=== PATIENT | male | born 1960 | race Caucasian/White ===

== ENCOUNTER 2017-10-01 10:58 | Outpatient (CLI) | payer MEDICARE ==
--- NOTE | ~2017-10-01 | HEMODYNAMI ---
PATIENT:LAURA QUINTEROS MEDICAL RECORD: [id number] : 56 LOCATION:[facility] ADMISSION DATE: 10/01/17 Generatedon:10/01/201714:24 Patient name: LAURA QUINTEROS Patient #: [id number] SSN: : 1960 Date of study: 10/01/2017 Page: Of Hemodynamic Procedure Report Patient Data Patient Demographics Procedure consent was obtained First Name: LAURA Gender: Male Last Name: NELI : 1960 Middle Initial: BO Age: 57 year(s) Patient #: [id number] Race: Unknown Additional ID: [id number] Contact details [address]: [address] [place] [address] State: [place] City: [place] Zip code: [address] Past Medical History Allergies: No known allergies Admission Admission Data Admission Date: 10/01/2017 Admission Time: 10:58 Admit Source: Other Lab Results Lab Result Date: 10/01/2017 Lab Result Time: 0:00 Biochemistry Name Units Result Min Max BUN mg/dl 32 --(----)-* 7 18 Creatinine mg/dl 1.2 --(---*)-- 0.6 1.3 CBC Name Units Result Min Max Hematocrit % 44.7 --(*---)-- 42 54 Hemoglobin g/dl 15.3 --(-*--)-- 13.5 17.5 Procedure Procedure Types Cath Procedure Diagnostic Procedure C [facility] w/Coronaries Procedure Description Procedure Date Procedure Date: 10/01/2017 Procedure Start Time: 14:08 Procedure End Time: 14:21 Procedure Staff Name Function Nabil Carr MD Performing Physician Krishna Lopez RT Monitor Idris Yu RN Nurse Laurel Russell RT Scrub Procedure Data Cath Procedure Fluoroscopy Diagnostic fluoroscopy Total fluoroscopy Time: 1.9 time: 1.9 min min Diagnostic fluoroscopy Total fluoroscopy dose: 628 dose: 628 mGy mGy Contrast Material Contrast Material Type Amount (ml) Isovue 300 58 Entry Location Entry Primary Successful Side Size Upsize Upsize Entry Closure Tapia ccessful Closure Location (Fr) 1 (Fr) 2 (Fr) Remarks Device Remarks Radial Right 6 Fr Mechanical artery Short Compression Estimated blood loss: 5 ml Diagnostic catheters Device Type Used For End Catheter Placement DIAGNOSTIC Sterling 110cm Procedure 5Fr catheter ([id number]) Procedure Complications No complications Procedure Medications Medication Administration Route Dosage Oxygen NC 2 l/min 0.9% NaCl I.V. 100 ml/hr Heparin Flush Bag added to field 2 bags (1000units/500ml NS) Radial Cocktail added to field 1 syringe (Verapomil 2mg/Nitro 400mcg/Heparin 1500units) Fentanyl I.V. 50 mcg Versed I.V. 1 mg Fentanyl I.V. 50 mcg Versed I.V. 1 mg Radial Cocktail I.A. 1 syringe (Verapomil 2mg/Nitro 400mcg/Heparin 1500units) Fentanyl I.V. 50 mcg Hemodynamics Rest HGB: 15.3 (g/dl) Heart Rate: 70 (bpm) Pressure Samples Time Site Value (mmHg) Purpose Heart Use Rate(bpm) 14:12 LV 95/1,13 Snapshot 76 14:12 LV 94/2,12 Snapshot 78 14:12 AO 70/47(55) Pullback 74 14:12 LV 91/-2,9 Pullback 74 Gradients Valve Time Site 1 Site 2 Mean SEP/DFP Peak To Heart Use (mmHg) (sec/min) Peak Rate (mmHg) (bpm) Aortic 14:12 LV AO 8 15 21 74 91/-2,9 70/47(55) Calculations Valve P-P Mean Valve Index Valve Source Name Gradient Area Flow (cm2) Aortic 21 8 21 8 Snapshots Pre Cath Intra NCS Post Cath Vital Signs Time Heart Resp SPO2 etCO2 NIBP Rhythm Pain Sedation Rate (ipm) (%) (mmHg) (mmHg) Status Level (bpm) 13:55:05 65 16 95 0 102/68(84) NSR 0 (11) 10(A) , No pain 13:59:37 70 17 95 0 106/73(93) NSR 0 (11) 10(A) , No pain 14:04:10 71 15 98 0 104/71(88) NSR 0 (11) 9(A) , No pain 14:08:42 74 16 97 0 105/71(86) NSR 0 (11) 9(A) , No pain 14:13:19 71 16 89 0 88/54(71) NSR 0 (11) 9(A) , No pain 14:17:49 80 16 98 0 93/63(76) NSR 0 (11) 9(A) , No pain 14:20:41 76 16 100 0 94/64(75) NSR 0 (11) 9(A) , No pain Medications Time Medication Route Dose Verified Delivered Reason Notes Effectiveness by by 14:01:46 Oxygen NC 2 l/min Nabil Idris Per Bruno Yu RN physician 14:01:54 0.9% NaCl I.V. 100 Nabil Idris Per ml/hr Bruno Yu RN physician 14:02:02 Heparin Flush added 2 bags Nabil Idris used for Bag to Bruno Yu RN procedure (1000units/500ml field NS) 14:02:17 Radial Cocktail added 1 Nabil Idris used for (Verapomil to syringe Bruno Yu RN procedure 2mg/Nitro field 400mcg/Heparin 1500units) 14:03:45 Fentanyl I.V. 50 mcg Nabil Idris for sedation Bruno Yu RN 14:03:51 Versed I.V. 1 mg Nabil Idris for sedation Bruno Yu RN 14:08:30 Fentanyl I.V. 50 mcg Nabil Idris for sedation Bruno Yu RN 14:08:35 Versed I.V. 1 mg Nabil Idris for sedation Bruno Yu RN 14:10:00 Radial Cocktail I.A. 1 Nabil Nabil for (Verapomil syringe Bruno Carr MD vasodilation 2mg/Nitro 400mcg/Heparin 1500units) 14:12:39 Fentanyl I.V. 50 mcg Nabil Idris for sedation Bruno Yu RN Procedure Log Time Note 13:30:31 Idris Yu RN sent for patient. Start room use. 13:37:30 Informed consent obtained and on chart 13:37:44 Admit Source: Other 13:38:08 Diagnostic Cath status Elective 13:38:17 Time tracking: Regular hours 13:38:26 Plan of Care:Hemodynamics will remain stable., Cardiac rhythm will remain stable., Comfort level will be maintained., Respiratory function will remain adequate., Patient/ family verbilizes understanding of procedure., Procedure tolerated without complication., Recovers from procedure without complications.. 13:47:43 Lab Result : Hemoglobin 15.3 g/dl ::43 Lab Result : Hematocrit 44.7 % ::43 Lab Result : BUN 32 mg/dl ::43 Lab Result : Creatinine 1.2 mg/dl 13:47:48 Patient received from Pre/Post Procedure Room to CCL 1 Alert and oriented. Tansferred to table in Supine position. 13:47:49 Warm blankets applied, and marisel hugger turned on for patient comfort. 13:47:50 Correct patient and procedure confirmed by team. 13:47:50 ECG and BP/O2 sat monitors applied to patient. 13:54:19 Vital chart was started 14:01:04 Baseline sample Acquired. 14:01:08 Rhythm: sinus rhythm 14:01:46 Oxygen 2 l/min NC was administered by Idris Yu RN; Per physician; 14:01:48 Full Disclosure recording started 14:01:54 0.9% NaCl 100 ml/hr I.V. was administered by Idris Yu RN; Per physician; 14:01:58 H&P Date Dictated: 09/12/2017 Within 30 days and on chart., H&P Addendum completed by physician on day of procedure. (MUST COMPLETE FOR ALL OUTPATIENTS). 14:01:59 Pre-procedure instructions explained to patient. 14:02:00 Pre-op teaching completed and patient verbalized understanding. 14:02:02 Heparin Flush Bag (1000units/500ml NS) 2 bags added to field was administered by Idris Yu RN; used for procedure; 14:02:02 Family in waiting room. 14:02:05 Patient NPO since Breakfast. 14:02:11 Patient allergic to No known allergies 14:02:14 Is the patient allergic to Iodine/contrast media? No. 14:02:14 Is patient on blood thinner?No 14:02:17 Radial Cocktail (Verapomil 2mg/Nitro 400mcg/Heparin 1500units) 1 syringe added to field was administered by Idris Yu RN; used for procedure; 14:02:19 Patient diabetic? Yes. 14:02:20 If diabetic: On Metformin? Yes 14:02:22 If on Metformin: Last Dose? 09/29/2017 14:02:25 Previous problem with sedation/anesthesia? No ? 14:02:27 Snore? Yes 14:02:28 Sleep apnea? Yes 14:02:28 Deviated septum? No 14:02:29 Opens mouth fully? Yes 14:02:30 Sticks out tongue? Yes 14:02:37 Airway obstruction? Yes copd 14:02:43 Dentures? No ? 14:02:45 Modified Kemar's test Ulnar < 7 seconds 14:02:47 Patient pain scale 0/10 ?. 14:02:57 IV patent on arrival in left wrist with 0.9% NaCl at [facility]. 14:02:59 Lab results completed and on chart. 14:03:02 Right Radial & Right Groin area was prepped with chlora-prep and draped in sterile fashion 14:03:03 Alarms reviewed by R. N. 14:03:03 Sharps counted by scrub and verified by R.N. 14:03:05 Use device set Radial Dx or PCI 14:03:06 ACIST Syringe (59627) opened to sterile field. 14:03:07 Medline Cath Pack ([id number]) opened to sterile field. 14:03:07 Bag Decanter (2002S) opened to sterile field. 14:03:10 ACIST Hand Control (12386) opened to sterile field. 14:03:10 ACIST Manifold (71854) opened to sterile field. 14:03:11 Tegaderm 4 x 4 (1626W) opened to sterile field. 14:03:13 DIAGNOSTIC WIRE .035 260cm J wire (929125) opened to sterile field. 14:03:13 SHEATH 6FR Slender ([id number]) opened to sterile field. 14:03:14 MBrace Wrist Support ([id number]) opened to sterile field. 14:03:15 NEEDLE Cook 21G 4cm Radial (F40415) opened to sterile field. 14:03:22 Physician arrived 14:03:22 --------ALL STOP TIME OUT------ 14:03:23 Final Timeout: patient, procedure, and site verified with staff and physician. All members of the team are in agreement. 14:03:24 Right Radial & Right Groin site verified by team. 14:03:26 Physical assessment completed. ASA score P 2 - A patient with mild systemic disease as per Nabil Carr MD. 14::28 Sedation plan: IV Moderate Sedation Medication:Versed, Fentanyl 14:03:45 Fentanyl 50 mcg I.V. was administered by Idris Yu RN; for sedation; 14:03:51 Versed 1 mg I.V. was administered by Idris Yu RN; for sedation; 14:06:14 Zero performed for pressure channel P1 14:08:16 Procedure started. 14:08:21 Local anesthetic to right radial artery with Lidocaine 2% by Nabil Carr MD.INITIAL ACCESS ONLY 14:08:28 A 6 Fr Short sheath was inserted into the Right Radial artery 14:08:30 Fentanyl 50 mcg I.V. was administered by Idris Yu RN; for sedation; 14:08:35 Versed 1 mg I.V. was administered by Idris Yu RN; for sedation; 14:10:00 Radial Cocktail (Verapomil 2mg/Nitro 400mcg/Heparin 1500units) 1 syringe I.A. was administered by Nabil Carr MD; for vasodilation; 14:11:01 A DIAGNOSTIC Sterling 110cm 5Fr catheter ([id number]) was advanced over the wire and used for Procedure. 14:12:20 EF : 60 % 14:12:22 LV gram done using CRISTINA 14:12:28 Injector settings: Ml/sec: 5, Volume: 15, 14:12:39 Fentanyl 50 mcg I.V. was administered by Idris Yu RN; for sedation; 14:12:59 LCA angiography performed. 14:14:56 RCA angiography performed. 14:15:41 Catheter removed. 14:15:43 TR BAND Standard ([id number]) opened to sterile field. 14:16:33 Sheath removed intact; hemostasis achieved with Mechanical Compression to the Right Radial artery. 14:16:35 Procedure ended.(Physican Out) 14:18:44 Fluoroscopy time 01.90 minutes. 14:18:50 Fluoroscopy dose: 628 mGy 14:18:50 Flurop Dose total: 628 14:18:55 Contrast amount:Isovue 300 58ml. 14:18:57 Sharps counted by scrub and verified by R.N. 14:19:01 Insertion/operative site no bleeding no hematoma. 14:19:11 Post right radial artery:stable, soft, clean and dry 14:19:21 TR band inflated with 11cc of air. 14:19:23 Post Procedure Pulses reassessed and unchanged 14:19:29 Post-procedure physical assessment completed. ASA score P 2 - A patient with mild systemic disease as per Nabil Carr MD. 14:19:32 Post procedure rhythm: unchanged. 14:20:02 Estimated blood loss: 5 ml 14:20:03 Post procedure instruction explained to patient.Patient verbalizes understanding. 14:20:04 Patient needs reinforcement of post procedure teaching. 14:21:06 Procedure and supply charges have been captured, reviewed, submitted and are correct. 14:21:08 Procedure Complication : No complications 14:21:11 Vital chart was stopped 14:21:11 See physician's report for complete and final results. 14:21:12 Report given to Pre/Post Procedure Room. 14:21:14 Patient transfered to Pre/Post Procedure Room with Stretcher. 14:21:16 Procedure ended. 14:21:16 Full Disclosure recording stopped 14:21:22 End room use (Document Last) Device Usage Item Name Manufacture Quantity Catalog Hospital Part Current Minima l Lot# / Number Charge Number Stock Stock Serial# Code ACIST Acist 1 25654 003957 092592 068672 20 Syringe Medical (35327) Systems Inc Medline Cath Cardinal 1 [id number] 440745 27038 225520 5 Pack Health ([id number]) Bag Decanter Microtek 1 2001S 976215 68854 568967 5 (2001S) Medical Inc. ACIST Hand Acist 1 12130 343319 080862 802185 5 Control Medical (79547) Systems Inc ACIST Acist 1 57108 098473 554622 526542 5 Manifold Medical (60798) Systems Inc Tegaderm 4 x 3M 1 1626W 900965 954778 083770 5 4 (1626W) DIAGNOSTIC [facility] 1 624398 909266 262507 845689 30 WIRE .035 260cm J wire (977399) SHEATH 6FR Terumo 1 [id number] 006741 467619 828088 40 Slender ([id number]) MBrace Wrist Advanced 1 140-0250-00 292153 58930 671808 5 Support Vascular ([id number]) Dynamics NEEDLE [facility] 1 E88620 265765 547296 730502 5 21G 4cm Radial (X12165) DIAGNOSTIC Terumo 1 40-5372 160054 792943 406244 5 Sterling 110cm 5Fr catheter (389269) TR BAND Terumo 1 [id number] 626104 575826 598049 40 Standard ([id number]) Signature Audit [place] Stage Time Signature Unsigned Intra-Procedure 10/01/2017 Krishna Lopez 2:24:30 PM RT(R) Signatures Monitor : Krishna Lopez RT Signature : Date : Time : [address] [address]
[2017-10-01] MEDS ORDERED: OXYCODONE HCL E20 MG PO (12:14)
[2017-10-01] MEDS ORDERED: MS CONTIN30 MG PO (12:15)
[2017-10-01] MEDS ORDERED: LYRICA150 MG PO (12:16)
[2017-10-01] MEDS ORDERED: OXYCOD/APAP TAB 10- (12:17)
[2017-10-01] MEDS ORDERED: ZANAFLEX4 MG PO (12:17)
[2017-10-01] MEDS ORDERED: LIPITOR80 MG PO (12:18)
[2017-10-01] MEDS ORDERED: GLUCOPHAGE500 MG PO (12:19)
[2017-10-01] MEDS ORDERED: CYMBALTA60 MG PO (12:19)
[2017-10-01] MEDS ORDERED: FUROSEMIDE20 MG PO (12:20)
[2017-10-01] MEDS ORDERED: LISINOPRIL5 MG PO (12:20)
[2017-10-01] MEDS ORDERED: METOPROLOL TART25 MG PO (12:21)
[2017-10-01] MEDS ORDERED: XANAX2 MG PO (12:22)
[2017-10-01] MEDS ORDERED: PROAIR HFA8.5 GM INH (12:24)
[2017-10-01] MEDS ORDERED: ALENDRONATE SOD70 MG PO (12:24)
[2017-10-01] MEDS ORDERED: LEXAPRO10 MG PO (12:25)
[2017-10-01] MEDS ORDERED: BUPROPION HCL200 M1 PO (12:26)
[2017-10-01] MEDS ORDERED: BAYER CHEWABLE81 MG PO (12:26)
[2017-10-01 12:29] LABS: BASOPHILS 0.3 % (0-2); EOSINOPHILS 3.3 % (0-7); HEMATOCRIT 44.7 % (42.0-54.0); HEMOGLOBIN 15.3 g/dL (13.5-17.5); IMMATURE GRANULOCYTES 0.2 % (0-5); LYMPHOCYTES 25.5 % (15-50); MCHC 34.2 g/dL (31.0-37.0); MCV 96.3 fL (80.0-100.0); MEAN PLATELET VOLUME 10.4 fL (7.4-10.4); MONOCYTES 8.2 % (2-11); NEUTROPHILS 62.5 % (40-80); PLATELET COUNT 254 10x3/uL (130-400); RBC 4.64 10x6/uL (4.20-6.10); RDW 13.8 % (11.5-14.5); WBC 11.9 10x3/uL (4.8-10.8)
[2017-10-01 12:37] LABS: ANION GAP 12.8 mmol/L (8-16); CARBON DIOXIDE 26.8 mmol/L (21.0-32.0); CREATININE - SERUM 1.2 mg/dL (0.6-1.3); POTASSIUM - SERUM 4.6 mmol/L (3.5-5.1)
[2017-10-01 12:40] VITALS: BP 93/60; BMI 30.9
== END 2017-10-01 17:00 | disposition home or self-care (01) ==
LOC: D.CATH 10:58
PROVIDERS: Internal Medicine Cardiovascular Disease
DX: I20.9 Angina pectoris, unspecified (principal); I10 Essential (primary) hypertension; R00.2 Palpitations; Z01.812 Encounter for preprocedural laboratory examination; F17.200 Nicotine dependence, unspecified, uncomplicated

== ENCOUNTER 2018-01-23 04:37 | Inpatient (IN) | payer MEDICARE ==
[2018-01-23] VITALS (7 sets, daily range): BP systolic 136–165; BP diastolic 72–103; Ht 177.8 cm; Wt 79.5 kg
[~2018-01-23] VITALS: Ht 177.8 cm; Wt 79.5 kg
[~2018-01-23 04:37] MED LIST: ALENDRONATE SOD70 MG PO; BAYER CHEWABLE81 MG PO; BUPROPION HCL200 M1 PO; CYMBALTA60 MG PO; FUROSEMIDE20 MG PO; GLUCOPHAGE500 MG PO; LEXAPRO10 MG PO; LIPITOR80 MG PO; LISINOPRIL5 MG PO; LYRICA150 MG PO; METOPROLOL TART25 MG PO; MS CONTIN30 MG PO; OXYCOD/APAP TAB 10-; OXYCODONE HCL E20 MG PO; PROAIR HFA8.5 GM INH; XANAX2 MG PO; ZANAFLEX4 MG PO
[2018-01-23 05:48] LABS: HEMATOCRIT 45.4 % (42.0-54.0); MCH 32.9 pg (26.0-34.0); MCHC 35.2 g/dL (31.0-37.0); MCV 93.2 fL (80.0-100.0); PLATELET COUNT 245 10x3/uL (130-400); RBC 4.87 10x6/uL (4.20-6.10); RDW 14.8 % (11.5-14.5); WBC 20.2 10x3/uL (4.8-10.8)
[2018-01-23 06:13] LABS: ALBUMIN 4.3 g/dL (3.4-5.0); ALKALINE PHOSPHATASE 63 U/L (46-116); ALT (SGPT) 27 U/L (10-68); CALC OSMOLALITY 289 mosm/kg (275-300); CALCIUM 9.9 mg/dL (8.5-10.1); CHLORIDE - SERUM 106 mmol/L (98-107); CKMB 6.7 U/L (0.0-3.6); CREATINE KINASE 234 UL (21-232); SODIUM 141 mmol/L (136-145); TROPONIN-I < 0.017 ng/mL (0.000-0.060); UREA NITROGEN 26 mg/dL (7-18); eGFR NON AFRICAN AMERICAN 81 mL/min (90-120)
[2018-01-23 06:14] LABS: GLUCOSE 167 mg/dL (74-106)
[2018-01-23 06:42] LABS: PROTEIN - SERUM 7.9 g/dL (6.4-8.2)
[2018-01-23 06:54] LABS: LYMPHOCYTES 9 % (15-50); MONOCYTES 12 % (2-11); NEUTROPHILS 78 % (40-80)
[2018-01-23 06:55] LABS: PLATELET ESTIMATE NORMAL
[2018-01-24 04:16] VITALS: BP 146/98
[2018-01-24 05:26] LABS: BASOPHILS 0.1 % (0-2); EOSINOPHILS 0 % (0-7); HEMATOCRIT 43.4 % (42.0-54.0); HEMOGLOBIN 14.7 g/dL (13.5-17.5); IMMATURE GRANULOCYTES 0.3 % (0-5); LYMPHOCYTES 13.1 % (15-50); MCHC 33.9 g/dL (31.0-37.0); MCV 94.6 fL (80.0-100.0); MONOCYTES 8.2 % (2-11); NEUTROPHILS 78.3 % (40-80); PLATELET COUNT 222 10x3/uL (130-400); RBC 4.59 10x6/uL (4.20-6.10); RDW 15.1 % (11.5-14.5)
[2018-01-24 05:31] LABS: ANION GAP 11.6 mmol/L (8-16); CALCIUM 8.7 mg/dL (8.5-10.1); CARBON DIOXIDE 27.7 mmol/L (21.0-32.0); CREATININE - SERUM 1.1 mg/dL (0.6-1.3); WBC 13.5 10x3/uL (4.8-10.8)
[2018-01-24 05:43] LABS: POTASSIUM - SERUM 5.3 mmol/L (3.5-5.1)
[2018-01-24 08:07] VITALS: BP 140/96
[2018-01-24 11:26] VITALS: BP 140/92
[2018-01-24 15:30] VITALS: BP 123/84
[2018-01-24 19:51] VITALS: BP 118/77
[2018-01-25 04:11] VITALS: BP 141/92
[2018-01-25 05:00] LABS: BASOPHILS 0.1 % (0-2); EOSINOPHILS 1.2 % (0-7); HEMATOCRIT 48.2 % (42.0-54.0); HEMOGLOBIN 16.6 g/dL (13.5-17.5); IMMATURE GRANULOCYTES 0.3 % (0-5); LYMPHOCYTES 16.7 % (15-50); MCH 32.9 pg (26.0-34.0); MCHC 34.4 g/dL (31.0-37.0); MCV 95.6 fL (80.0-100.0); MEAN PLATELET VOLUME 10.6 fL (7.4-10.4); MONOCYTES 9.1 % (2-11); NEUTROPHILS 72.6 % (40-80); PLATELET COUNT 260 10x3/uL (130-400); RBC 5.04 10x6/uL (4.20-6.10); RDW 15.4 % (11.5-14.5); WBC 14.7 10x3/uL (4.8-10.8)
[2018-01-25 05:09] LABS: CALC OSMOLALITY 283 mosm/kg (275-300); CALCIUM 9.6 mg/dL (8.5-10.1); CHLORIDE - SERUM 101 mmol/L (98-107); GLUCOSE 119 mg/dL (74-106); POTASSIUM - SERUM 4.6 mmol/L (3.5-5.1); SODIUM 138 mmol/L (136-145); UREA NITROGEN 33 mg/dL (7-18); eGFR NON AFRICAN AMERICAN 81 mL/min (90-120)
[2018-01-25 07:53] VITALS: BP 120/91
[2018-01-25 12:28] VITALS: BP 127/89
[2018-01-25 16:00] VITALS: BP 127/87
[2018-01-25 20:55] VITALS: BP 134/84
[2018-01-26 00:47] VITALS: BP 101/61
[2018-01-26 05:04] VITALS: BP 104/70
[2018-01-26 05:05] LABS: BASOPHILS 0.2 % (0-2); EOSINOPHILS 3.2 % (0-7); HEMATOCRIT 45.2 % (42.0-54.0); HEMOGLOBIN 15.1 g/dL (13.5-17.5); IMMATURE GRANULOCYTES 0.2 % (0-5); MCH 31.9 pg (26.0-34.0); MCHC 33.4 g/dL (31.0-37.0); MCV 95.6 fL (80.0-100.0); MEAN PLATELET VOLUME 10.6 fL (7.4-10.4); MONOCYTES 8.3 % (2-11); NEUTROPHILS 67.1 % (40-80); PLATELET COUNT 254 10x3/uL (130-400); RBC 4.73 10x6/uL (4.20-6.10); RDW 14.7 % (11.5-14.5); WBC 12.8 10x3/uL (4.8-10.8)
[2018-01-26 05:21] LABS: CALC OSMOLALITY 280 mosm/kg (275-300); CALCIUM 8.9 mg/dL (8.5-10.1); CARBON DIOXIDE 28.8 mmol/L (21.0-32.0); CHLORIDE - SERUM 105 mmol/L (98-107); CREATININE - SERUM 0.9 mg/dL (0.6-1.3); GLUCOSE 123 mg/dL (74-106); POTASSIUM - SERUM 5.2 mmol/L (3.5-5.1); SODIUM 137 mmol/L (136-145); UREA NITROGEN 29 mg/dL (7-18); eGFR NON AFRICAN AMERICAN > 90 mL/min (90-120)
[2018-01-26 08:04] VITALS: BP 127/76
[2018-01-26 12:34] VITALS: BP 120/78
[2018-01-26 16:03] VITALS: BP 86/52
[2018-01-26 21:46] VITALS: BP 98/68
[2018-01-27 00:38] VITALS: BP 121/69
[2018-01-27 04:35] VITALS: BP 121/80
[2018-01-27 05:03] LABS: BASOPHILS 0.1 % (0-2); EOSINOPHILS 3.4 % (0-7); HEMATOCRIT 49.6 % (42.0-54.0); HEMOGLOBIN 16.8 g/dL (13.5-17.5); IMMATURE GRANULOCYTES 0.3 % (0-5); LYMPHOCYTES 26.4 % (15-50); MCH 32.7 pg (26.0-34.0); MCHC 33.9 g/dL (31.0-37.0); MCV 96.5 fL (80.0-100.0); MEAN PLATELET VOLUME 10.3 fL (7.4-10.4); MONOCYTES 7.2 % (2-11); NEUTROPHILS 62.6 % (40-80); PLATELET COUNT 273 10x3/uL (130-400); RBC 5.14 10x6/uL (4.20-6.10); RDW 14.7 % (11.5-14.5); WBC 13.7 10x3/uL (4.8-10.8)
[2018-01-27 05:15] LABS: CALC OSMOLALITY 284 mosm/kg (275-300); CALCIUM 9.5 mg/dL (8.5-10.1); CHLORIDE - SERUM 103 mmol/L (98-107); GLUCOSE 138 mg/dL (74-106); POTASSIUM - SERUM 5.5 mmol/L (3.5-5.1); SODIUM 138 mmol/L (136-145); UREA NITROGEN 31 mg/dL (7-18); eGFR NON AFRICAN AMERICAN 81 mL/min (90-120)
[2018-01-27 07:45] VITALS: BP 145/89
[2018-01-27] MEDS ORDERED: NICODERM C1 PATCH .3 TRANSDERM (11:22)
== END 2018-01-27 11:54 | disposition home or self-care (01) | DRG 200 ==
LOC: D.ER 04:37 → D.MS 07:27 → D.EDHOLD 07:27 → OBSVTIME 07:28 → D.MS 08:09
PROVIDERS: Family Medicine; Internal Medicine Nephrology
DX: J95.811 Postprocedural pneumothorax (principal); F11.20 Opioid dependence, uncomplicated; T81.82XD Emphysema (subcutaneous) resulting from a procedure, subsequent encounter; E11.9 Type 2 diabetes mellitus without complications; Z79.84 Long term (current) use of oral hypoglycemic drugs; I10 Essential (primary) hypertension; J44.9 Chronic obstructive pulmonary disease, unspecified; G89.29 Other chronic pain

== ENCOUNTER → 2018-01-27 14:09 | Outpatient (CLI) | payer MEDICARE ==
[2018-01-23 16:57] VITALS: BMI 25.1
[~2018-01-27 14:09] MED LIST changes: +NICODERM C1 PATCH .3 TRANSDERM
[2018-01-27 15:20] LABS: COMPLEMENT C4 27.4 mg/dL (17.4-52.2)
== END | disposition home or self-care (01) ==
LOC: D.LABREF 14:09
PROVIDERS: Allergy & Immunology
DX: T78.3XXA Angioneurotic edema, initial encounter (principal); R22.41 Localized swelling, mass and lump, right lower limb

== ENCOUNTER → 2018-05-20 15:26 | Outpatient (CLI) | payer MEDICARE ==
[2018-01-23 16:57] VITALS: BMI 25.1
== END | disposition home or self-care (01) ==
LOC: D.US 15:26 → D.CT 16:30
DX: E04.9 Nontoxic goiter, unspecified (principal)

== ENCOUNTER → 2018-06-06 13:46 | Outpatient (CLI) | payer MEDICARE ==
[2018-01-23 16:57] VITALS: BMI 25.1
== END | disposition home or self-care (01) ==
LOC: D.US 13:46
DX: E04.2 Nontoxic multinodular goiter (principal)

== ENCOUNTER 2018-08-17 18:02 | Emergency (ER) | payer MEDICARE ==
[~2018-08-17] VITALS: Ht 177.8 cm; Wt 90.5 kg
[2018-08-17 18:11] VITALS: Ht 177.8 cm; Wt 90.5 kg
[2018-08-17 18:33] LABS: BASOPHILS 0.2 % (0-2); EOSINOPHILS 4.2 % (0-7); HEMATOCRIT 44.1 % (42.0-54.0); IMMATURE GRANULOCYTES 0.2 % (0-5); LYMPHOCYTES 40.3 % (15-50); MCH 32.4 pg (26.0-34.0); MCV 95.2 fL (80.0-100.0); MEAN PLATELET VOLUME 10.1 fL (7.4-10.4); MONOCYTES 7.7 % (2-11); NEUTROPHILS 47.4 % (40-80); RBC 4.63 10x6/uL (4.20-6.10); RDW 14.1 % (11.5-14.5); WBC 8.8 10x3/uL (4.8-10.8)
[2018-08-17 18:44] LABS: PLATELET COUNT 213 10x3/uL (130-400)
[2018-08-17 18:56] LABS: ALBUMIN 3.4 g/dL (3.4-5.0); ANION GAP 11.9 mmol/L (8-16); BILIRUBIN - TOTAL 0.23 mg/dL (0.2-1.3); CALCIUM 9.3 mg/dL (8.5-10.1); CARBON DIOXIDE 27.7 mmol/L (21.0-32.0); CREATININE - SERUM 1.2 mg/dL (0.6-1.3); POTASSIUM - SERUM 4.6 mmol/L (3.5-5.1); PROTEIN - SERUM 6.9 g/dL (6.4-8.2)
[2018-08-17 19:06] LABS: T4 THYROXIN - FREE 1.03 ng/dL (0.76-1.46); T4 THYROXINE 8.4 ug/dL (4.7-13.3); THYROID STIMULATING HORMONE 3.53 uIU/mL (0.36-3.74)
[2018-08-17 20:28] LABS: APPEARANCE SL CLDY (CLEAR); BILIRUBIN NEGATIVE (NEGATIVE); COLOR YELLOW (YELLOW); GLUCOSE NEGATIVE (NEGATIVE); KETONE NEGATIVE (NEGATIVE); NITRITE NEGATIVE (NEGATIVE); PROTEIN NEGATIVE (NEGATIVE); UROBILINOGEN NORMAL (NORMAL)
[2018-08-17 21:36] VITALS: BP 110/68
== END 2018-08-17 21:35 | disposition home or self-care (01) ==
LOC: D.ER 18:02
PROVIDERS: Emergency Medicine
DX: T78.3XXA Angioneurotic edema, initial encounter (principal); E11.9 Type 2 diabetes mellitus without complications; I10 Essential (primary) hypertension; J44.9 Chronic obstructive pulmonary disease, unspecified; F17.200 Nicotine dependence, unspecified, uncomplicated

== ENCOUNTER → 2018-10-27 10:12 | Outpatient (CLI) | payer MEDICARE ==
[2018-08-17 18:11] VITALS: BMI 28.6
== END | disposition home or self-care (01) ==
LOC: D.US 10:12
PROVIDERS: ATTEND Family Medicine
DX: I71.4 Abdominal aortic aneurysm, without rupture (principal)

== ENCOUNTER → 2018-11-27 07:30 | Outpatient (CLI) | payer MEDICARE ==
[2018-08-17 18:11] VITALS: BMI 28.6
== END | disposition home or self-care (01) ==
LOC: D.NM 07:30
PROVIDERS: ATTEND Family Medicine
DX: E04.9 Nontoxic goiter, unspecified (principal)

== ENCOUNTER → 2019-04-30 09:33 | Outpatient (CLI) | payer MEDICARE ==
[2018-08-17 18:11] VITALS: BMI 28.6
== END | disposition home or self-care (01) ==
LOC: D.US 09:33
PROVIDERS: ATTEND Family Medicine
DX: I71.4 Abdominal aortic aneurysm, without rupture (principal)

== ENCOUNTER 2019-08-17 12:15 | Emergency (ER) | payer MEDICARE ==
[~2019-08-17] VITALS: Ht 177.8 cm; Wt 81.4 kg
[2019-08-17 12:20] VITALS: Ht 177.8 cm; Wt 81.4 kg
[2019-08-17 12:38] LABS: BASOPHILS 0.3 % (0-2); EOSINOPHILS 2.5 % (0-7); HEMATOCRIT 42.6 % (42.0-54.0); HEMOGLOBIN 14.1 g/dL (13.5-17.5); IMMATURE GRANULOCYTES 0.1 % (0-5); LYMPHOCYTES 39.4 % (15-50); MCH 32.7 pg (26.0-34.0); MCHC 33.1 g/dL (31.0-37.0); MCV 98.8 fL (80.0-100.0); MEAN PLATELET VOLUME 9.2 fL (7.4-10.4); MONOCYTES 10.6 % (2-11); NEUTROPHILS 47.1 % (40-80); PLATELET COUNT 215 10x3/uL (130-400); RBC 4.31 10x6/uL (4.20-6.10); RDW 14.9 % (11.5-14.5); WBC 6.7 10x3/uL (4.8-10.8)
[2019-08-17 12:48] LABS: CALC OSMOLALITY 288 mosm/kg (275-300); CARBON DIOXIDE 34.4 mmol/L (21.0-32.0); CHLORIDE - SERUM 105 mmol/L (98-107); GLUCOSE 72 mg/dL (74-106); POTASSIUM - SERUM 4.7 mmol/L (3.5-5.1); SODIUM 142 mmol/L (136-145); UREA NITROGEN 31 mg/dL (7-18); eGFR NON AFRICAN AMERICAN 81 mL/min (90-120)
[2019-08-17 12:55] LABS: ALBUMIN 3.4 g/dL (3.4-5.0); ALKALINE PHOSPHATASE 71 U/L (46-116); ALT (SGPT) 23 U/L (10-68); MAGNESIUM - SERUM 1.7 mg/dL (1.8-2.4); PROTEIN - SERUM 6.4 g/dL (6.4-8.2)
[2019-08-17] MEDS ORDERED: MACROBID100 MG PO (14:24)
[2019-08-17] MEDS ORDERED: KEFLEX500 MG PO (14:24)
[2019-08-17 16:17] VITALS: BP 102/61
[2019-08-17 16:27] LABS: COLOR YELLOW (YELLOW)
[2019-08-17 16:28] LABS: APPEARANCE CLEAR (CLEAR); SPECIFIC GRAVITY 1.015 (1.005-1.020)
[2019-08-17 16:29] LABS: BILIRUBIN NEGATIVE (NEGATIVE); GLUCOSE NEGATIVE (NEGATIVE); KETONE NEGATIVE (NEGATIVE); NITRITE NEGATIVE (NEGATIVE); PROTEIN NEGATIVE (NEGATIVE); UROBILINOGEN NORMAL (NORMAL)
[2019-08-17 16:37] LABS: UDS - AMPHET NEGATIVE QUAL (NEGATIVE); UDS - BARB NEGATIVE QUAL (NEGATIVE); UDS - BENZO POSITIVE QUAL (NEGATIVE); UDS - COCAINE NEGATIVE QUAL (NEGATIVE); UDS - OPIATE POSITIVE QUAL (NEGATIVE); UDS - PCP NEGATIVE QUAL (NEGATIVE); UDS - THC POSITIVE QUAL (NEGATIVE)
== END 2019-08-17 16:21 | disposition home or self-care (01) ==
LOC: D.ER 12:15
PROVIDERS: Family Medicine
DX: N39.0 Urinary tract infection, site not specified (principal); F11.129 Opioid abuse with intoxication, unspecified; I10 Essential (primary) hypertension; E11.9 Type 2 diabetes mellitus without complications; Z79.84 Long term (current) use of oral hypoglycemic drugs; J44.9 Chronic obstructive pulmonary disease, unspecified

== ENCOUNTER → 2019-10-08 11:33 | Outpatient (CLI) | payer MEDICARE ==
[2019-08-17 12:20] VITALS: BMI 25.7
[~2019-10-08 11:33] MED LIST changes: +KEFLEX500 MG PO; +MACROBID100 MG PO
== END | disposition home or self-care (01) ==
LOC: D.CT 10-01 13:30
PROVIDERS: ATTEND Family Medicine
DX: R91.8 Other nonspecific abnormal finding of lung field (principal)

== ENCOUNTER 2020-05-13 07:50 | Day surgery (SDC) | payer MEDICARE ==
[2020-05-10 12:41] LABS: HEMATOCRIT 42.9 % (42.0-54.0); HEMOGLOBIN 14.1 g/dL (13.5-17.5); MCH 31.8 pg (26.0-34.0); MCHC 32.9 g/dL (31.0-37.0); MCV 96.8 fL (80.0-100.0); MEAN PLATELET VOLUME 9.8 fL (7.4-10.4); RBC 4.43 10x6/uL (4.20-6.10); RDW 14.5 % (11.5-14.5); WBC 8.8 10x3/uL (4.8-10.8)
[2020-05-10 12:53] LABS: CALC OSMOLALITY 282 mosm/kg (275-300); CALCIUM 9.2 mg/dL (8.5-10.1); CARBON DIOXIDE 29.6 mmol/L (21.0-32.0); CHLORIDE - SERUM 103 mmol/L (98-107); CREATININE - SERUM 0.9 mg/dL (0.6-1.3); GLUCOSE 87 mg/dL (74-106); POTASSIUM - SERUM 5.1 mmol/L (3.5-5.1); SODIUM 139 mmol/L (136-145); UREA NITROGEN 30 mg/dL (7-18); eGFR NON AFRICAN AMERICAN > 90 mL/min (90-120)
[~2020-05-13] VITALS: Ht 172.7 cm; Wt 81.6 kg
[~2020-05-13 07:50] MED LIST changes: +MORPHINE; +XANAX1 MG PO
[2020-05-13 08:48] VITALS: BP 123/75; Ht 172.7 cm; Wt 81.6 kg
--- NOTE | 2020-05-13 12:04 | NUR ---
PATIETN CRYING MAD YELLING AT NURSE STATING HE IS NOT ALLERGIC TO LIDOCAINE. GIVEN 2 MG OF DILAUDED.
--- NOTE | 2020-05-13 12:43 | NUR ---
1235-RECD TO ROOM FROM PACU WITH PAIN SCALE OF 10. ALERT. IV PATENT. R ARM DRESSING DRY AND INTACT.
--- NOTE | 2020-05-13 14:59 | NUR ---
1315 PT MEDICATED FOR PAIN THAT HE STATES IS A 6 OUT OF 10 1327 IV DC'D. CATHETER TIP INTACT. NO BLEEDING AT SITE. BANDAID APPLIED. 1400 REVIEWED DISCHARGE INSTRUCTIONS WITH PT WHO VOICES UNDERSTANDING OF INSTRUCTIONS. PT IS READY FOR DISCHARGE AND WAITING ON HIS RIDE. PAIN LEVEL IS NOW A 5 OUT OF 10.
--- NOTE | 2020-05-16 12:57 | OP ---
PATIENT NAME: LAURA QUINTEROS MEDICAL RECORD: [id number] :56 LOCATION:[facility] ADMISSION DATE: SURGEON: DAVID SANTIAGO DO DATE OF OPERATION: 05/13/2020 PROCEDURE PERFORMED: Right ulnar nerve decompression, release at the wrist. 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 INDICATIONS: Mr. Quinteros is a 60-year-old male who has had numbness and tingling into his pinky and ring fingers in the right hand for quite some time. I got a nerve conduction study, which showed no ulnar nerve entrapment, not at the elbow, but at the wrist and Guyon canal. 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 SURGEON: David Santiago DO DESCRIPTION OF PROCEDURE: The patient was taken to the operative suite, laid in supine position, given general anesthetic, an LMA was placed, given 2 g of Ancef preoperatively. The right upper extremity was then prepped and draped in sterile fashion. Time-out was performed. Everyone was in agreement as to the correct side, site, patient, and procedure. I then made a V-shaped almost incision on the ulnar side of the wrist with the apex essentially at the wrist crease going between the hook of the hamate and the pisiform. I then made careful dissection down to the ulnar nerve, released all the structures around the ulnar nerve at the wrist including the fascia of the pisiform on the radial side and then all the motor branches of the different zones of the ulnar nerve. Three zones of the ulnar nerve were released as well up into the palm. The ulnar artery was right on top and that was protected. The tourniquet was then let down. Any bleeding was coagulated with a pickup and a Bovie and then closed by Deondre Bullard, certified surgical elastic knitter hand frame, in a horizontal mattress fashion with 4-0 nylon. He was then dressed with Adaptic, 4 x 4, cast padding and a volar splint was placed on the patient and secured with an Eric wrap. The tourniquet was inflated prior to starting after exsanguinating the right upper extremity to 250 mmHg and was up for 22 minutes. It was let down at the end of the procedure and any bleeding was coagulated. BLOOD LOSS: Minimal. COMPLICATIONS: None. NTS:[id number] Voice Confirmation ID: [id number] DOCUMENT ID: [id number] OPERATIVE REPORT [id number] LAURA QUINTEROS MICHAEL D, DO at 1257 CC: [id number] DICTATION DATE: 05/13/20 1134 IMPORTER EXPORTER: 05/13/201940 [facility] 05/13/20 [facility] [address] [place] [address]
== END 2020-05-13 14:14 | disposition home or self-care (01) ==
LOC: D.OPS 07:50 → D.PAN 12:30 → D.OPS 12:30
PROVIDERS: Anesthesiology; ATTEND Orthopaedic Surgery
DX: G56.21 Lesion of ulnar nerve, right upper limb (principal); M25.531 Pain in right wrist; E11.9 Type 2 diabetes mellitus without complications; Z79.84 Long term (current) use of oral hypoglycemic drugs; E78.5 Hyperlipidemia, unspecified; I10 Essential (primary) hypertension